=== PATIENT | female | born 1990 | race Caucasian/White ===

== ENCOUNTER 2020-05-05 02:01 | Inpatient (IN) | payer OTHER ==
[2020-05-05 02:25] VITALS: BMI 23.0
[2020-05-05] MEDS ORDERED: MAGNESIUM CITRATE 300 ML BOTTLE PO PRN (02:45)
[2020-05-05] MEDS ORDERED: NALOXONE HCL 0.4 MG/ML VIAL IM PRN (02:45)
[2020-05-05] MEDS ORDERED: ACETAMINOPHEN 325 MG TABLET (FP) PO PRN ×2 (02:45)
[2020-05-05] MEDS ORDERED: MAG HYDROX/AL HYDROX/SIMETH 30 ML UNIT-DOSE CUP PO PRN (02:45)
[2020-05-05] MEDS ORDERED: NALOXONE (NARCAN) HCL 4 MG/0.1 ML SPRAY NS PRN (02:45)
[2020-05-05] MEDS ORDERED: METHADONE HCL 10 MG TABLET (FOR DETOX USE ONLY) PO ONE (02:45)
[2020-05-05] MEDS ORDERED: DICYCLOMINE HCL 10 MG CAPSULE PO PRN (02:45)
[2020-05-05] MEDS ORDERED: MAGNESIUM HYDROX 2400MG/30ML ORAL SUSPENSION 30 ML CUP PO PRN (02:45)
[2020-05-05] MEDS ORDERED: guaiFENesin 200 MG/10 ML 10 ML UNIT-DOSE CUPS PO PRN (02:45)
[2020-05-05] MEDS ORDERED: NICOTINE POLACRILEX 2 MG GUM BUC PRN (02:45)
[2020-05-05] MEDS ORDERED: MENTHOL/PHENOL 1 EACH UD MM PRN (02:45)
[2020-05-05] MEDS ORDERED: IBUPROFEN 400 MG TABLET (FP) PO PRN (02:45)
[2020-05-05] MEDS ORDERED: BISMUTH SUBSALICYLATE 524 MG/30 ML UD PO PRN (02:45)
[2020-05-05] MEDS ORDERED: P-EPHED 60MG/TRIPROLIDI 2.5MG TABLET PO PRN (02:45)
[2020-05-05] MEDS ORDERED: METHADONE HCL 10 MG TABLET (FOR DETOX USE ONLY) ONE (03:48)
[2020-05-05] MEDS ORDERED: cloNIDine HCL 0.1 MG TABLET ONE (07:05)
[2020-05-05] MEDS ORDERED: ONDANSETRON *ODT* 4 MG TABLET ONE (07:06)
[2020-05-05] MEDS: ONDANSETRON *ODT* 4 MG TABLET SL PRN (07:08)
[2020-05-05] MEDS: cloNIDine HCL 0.1 MG TABLET PO PRN (07:08)
[2020-05-05] MEDS: LIDOCAINE 5% TOPICAL PATCH TP SCH (11:43)
[2020-05-05] MEDS: NICOTINE 21 MG/24 HOURS TOPICAL PATCH TD SCH (11:43)
[2020-05-05] MEDS: PRENATAL VITAMINS W/ FOLIC ACID TABLET (FP) PO SCH (11:45)
[2020-05-05] MEDS: THIAMINE HCL 100 MG TABLET (FP) PO SCH (22:57)
[2020-05-05] MEDS: MELATONIN 5 MG TABLETS PO SCH (22:57)
[2020-05-05] MEDS: LIDOCAINE PATCH REMOVAL MC SCH (23:07)
[2020-05-06] MEDS: diazePAM 5 MG TABLET PO PRN ×4 (00:55→22:49)
[2020-05-06] MEDS: METHOCARBAMOL 500 MG TABLET PO PRN ×3 (00:56→22:50)
[2020-05-06] MEDS: cloNIDine HCL 0.1 MG TABLET PO PRN ×2 (04:02→10:49)
[2020-05-06] MEDS: ONDANSETRON *ODT* 4 MG TABLET SL PRN (04:02)
[2020-05-06] MEDS ORDERED: METHADONE HCL 10 MG TABLET (FOR DETOX USE ONLY) ONE ×2 (08:58→10:47)
[2020-05-06] MEDS ORDERED: METHADONE HCL 5 MG TABLET (FOR DETOX USE ONLY) ONE ×2 (08:58→10:47)
[2020-05-06] MEDS ORDERED: METHADONE (DETOX) 20 MG, METHADONE (DETOX) 5 MG PO ONE (10:00)
[2020-05-06] MEDS ORDERED: METHADONE (DETOX) 10 MG, METHADONE (DETOX) 5 MG PO ONE (10:00)
[2020-05-06] MEDS: PRENATAL VITAMINS W/ FOLIC ACID TABLET (FP) PO SCH (10:42)
[2020-05-06] MEDS: NICOTINE 21 MG/24 HOURS TOPICAL PATCH TD SCH (10:42)
[2020-05-06 10:55] LABS: HEMATOCRIT 43.7 % (32.4-45.2); HEMOGLOBIN 14.6 GM/dL (10.7-15.3); MCH 29.2 pg (25.7-33.7); MCHC 33.3 g/dl (32.0-36.0); MEAN CELL VOLUME 87.6 fl (80-96); PLATELET COUNT 387 K/MM3 (134-434); RBC 4.99 M/mm3 (3.60-5.2); RDW 12.6 % (11.6-15.6); WHITE BLOOD COUNT 15.3 K/mm3 (4.0-10.0)
[2020-05-06 11:01] LABS: ALBUMIN 4.4 g/dl (3.4-5.0); BLOOD UREA NITROGEN 8.9 mg/dL (7-18); CALCIUM 9.3 mg/dL (8.5-10.1)
[2020-05-06 11:02] LABS: POTASSIUM 3.7 mmol/L (3.5-5.1)
[2020-05-06 11:04] LABS: CREATININE 0.8 mg/dL (0.55-1.3)
[2020-05-06 11:07] LABS: BILIRUBIN,TOTAL 1.6 mg/dL (0.2-1); TOT PROT 7.7 g/dl (6.4-8.2)
[2020-05-06] MEDS: LIDOCAINE 5% TOPICAL PATCH TP SCH (11:09)
[2020-05-06] MEDS: MELATONIN 5 MG TABLETS PO SCH (22:38)
[2020-05-06] MEDS: THIAMINE HCL 100 MG TABLET (FP) PO SCH (22:39)
[2020-05-06] MEDS: LIDOCAINE PATCH REMOVAL MC SCH (23:16)
[2020-05-07] MEDS: diazePAM 5 MG TABLET PO PRN ×4 (06:17→23:09)
[2020-05-07] MEDS: METHOCARBAMOL 500 MG TABLET PO PRN ×2 (06:17→12:18)
[2020-05-07] MEDS: NICOTINE 21 MG/24 HOURS TOPICAL PATCH TD SCH (09:25)
[2020-05-07] MEDS: PRENATAL VITAMINS W/ FOLIC ACID TABLET (FP) PO SCH (09:25)
[2020-05-07] MEDS: LIDOCAINE 5% TOPICAL PATCH TP SCH (09:25)
[2020-05-07] MEDS: ONDANSETRON *ODT* 4 MG TABLET SL PRN (09:37)
[2020-05-07] MEDS ORDERED: METHADONE HCL 10 MG TABLET (FOR DETOX USE ONLY) PO ONE ×2 (10:00)
[2020-05-07] MEDS ORDERED: MASKS NR ONE (16:32)
[2020-05-07] MEDS: THIAMINE HCL 100 MG TABLET (FP) PO SCH (23:09)
[2020-05-07] MEDS: MELATONIN 5 MG TABLETS PO SCH (23:10)
[2020-05-07] MEDS: LIDOCAINE PATCH REMOVAL MC SCH (23:10)
[2020-05-08] MEDS: METHOCARBAMOL 500 MG TABLET PO PRN ×2 (02:05→10:31)
[2020-05-08] MEDS ORDERED: METHADONE HCL 5 MG TABLET (FOR DETOX USE ONLY) PO ONE (06:00)
[2020-05-08] MEDS: ONDANSETRON *ODT* 4 MG TABLET SL PRN (07:26)
[2020-05-08 09:36] VITALS: BP 125/88; PULSE 107; TEMP 98.6
[2020-05-08] MEDS ORDERED: METHADONE (DETOX) 10 MG, METHADONE (DETOX) 5 MG PO ONE (10:00)
[2020-05-08] MEDS: PRENATAL VITAMINS W/ FOLIC ACID TABLET (FP) PO SCH (10:30)
[2020-05-08] MEDS: NICOTINE 21 MG/24 HOURS TOPICAL PATCH TD SCH (10:31)
[2020-05-08] MEDS: LIDOCAINE 5% TOPICAL PATCH TP SCH (10:31)
[2020-05-09] MEDS ORDERED: METHADONE HCL 10 MG TABLET (FOR DETOX USE ONLY) PO ONE (10:00)
[2020-05-10] MEDS ORDERED: METHADONE HCL 5 MG TABLET (FOR DETOX USE ONLY) PO ONE (06:00)
== END 2020-05-08 11:54 | disposition home or self-care (01) | DRG 896 ==
LOC: YASAS 02:01 → Y3N 09:53
PROVIDERS: ADMIT Allergy & Immunology; ATTEND Allergy & Immunology
PROC: HZ2ZZZZ Detoxification Services for Substance Abuse Treatment (ICD-10-PCS; principal; 2020-05-05)
DX: F11.23 Opioid dependence with withdrawal (principal); U07.1 COVID-19; F13.10 Sedative, hypnotic or anxiolytic abuse, uncomplicated; F17.210 Nicotine dependence, cigarettes, uncomplicated; F19.24 Other psychoactive substance dependence with psychoactive substance-induced mood disorder; Z91.81 History of falling; Z88.0 Allergy status to penicillin
CPT/HCPCS: 36415; 80053; 85027; 86780; 93005; 93010; C9803; J0735; Q0162; U0003

== ENCOUNTER 2021-03-17 01:02 | Inpatient (IN) | payer OTHER ==
[2021-03-17 01:56] VITALS: BMI 23.0
[2021-03-17] MEDS ORDERED: ACETAMINOPHEN 325 MG TABLET (FP) PO PRN ×2 (02:08)
[2021-03-17] MEDS ORDERED: NICOTINE POLACRILEX 2 MG GUM BUC PRN (02:08)
[2021-03-17] MEDS ORDERED: IBUPROFEN 400 MG TABLET (FP) PO PRN (02:08)
[2021-03-17] MEDS ORDERED: MENTHOL/PHENOL 1 EACH UD MM PRN (02:08)
[2021-03-17] MEDS ORDERED: MAGNESIUM CITRATE 300 ML BOTTLE PO PRN (02:08)
[2021-03-17] MEDS ORDERED: MAG HYDROX/AL HYDROX/SIMETH 30 ML UNIT-DOSE CUP PO PRN (02:08)
[2021-03-17] MEDS ORDERED: MAGNESIUM HYDROX 2400MG/30ML ORAL SUSPENSION 30 ML CUP PO PRN (02:08)
[2021-03-17] MEDS ORDERED: BISMUTH SUBSALICYLATE 524 MG/30 ML PO PRN (02:08)
[2021-03-17] MEDS ORDERED: cloNIDine HCL 0.1 MG TABLET PO PRN (02:29)
[2021-03-17] MEDS ORDERED: METHOCARBAMOL 500 MG TABLET ONE (03:19)
[2021-03-17] MEDS: METHOCARBAMOL 500 MG TABLET PO PRN ×3 (03:20→22:13)
[2021-03-17] MEDS ORDERED: methaDONE HCL 10 MG TABLET (FOR DETOX USE ONLY) PO ONE (10:44)
[2021-03-17] MEDS: NICOTINE 14 MG/24 HOURS TOPICAL PATCH TD SCH (10:50)
[2021-03-17] MEDS: PRENATAL VITAMINS W/ FOLIC ACID TABLET (FP) PO SCH (10:51)
[2021-03-17] MEDS: diazePAM 5 MG TABLET PO SCH ×3 (11:25→22:12)
[2021-03-17] MEDS: ONDANSETRON *ODT* 4 MG TABLET SL PRN (11:53)
[2021-03-17 12:34] LABS: HEMATOCRIT 45.4 % (32.4-45.2); HEMOGLOBIN 14.9 GM/dL (10.7-15.3); MCH 28.2 pg (25.7-33.7); MCHC 32.8 g/dl (32.0-36.0); MEAN PLT VOLUME 9.1 fl (7.5-11.1); PLATELET COUNT 282 10^3/uL (134-434); RBC 5.28 M/mm3 (3.60-5.2); RDW 12.6 % (11.6-15.6); WHITE BLOOD COUNT 6.1 K/mm3 (4.0-10.0)
[2021-03-17 12:44] LABS: ALBUMIN 4.1 g/dl (3.4-5.0)
[2021-03-17 12:46] LABS: CALCIUM 9.1 mg/dL (8.5-10.1)
[2021-03-17 12:47] LABS: BILIRUBIN,TOTAL 0.8 mg/dL (0.2-1); BLOOD UREA NITROGEN 10.8 mg/dL (7-18); TOT PROT 7.1 g/dl (6.4-8.2)
[2021-03-17 13:34] LABS: HIV INTERPRETATION NEGATIVE (NEGATIVE)
[2021-03-17] MEDS: diazePAM 5 MG TABLET PO PRN (14:55)
[2021-03-17] MEDS: THIAMINE HCL 100 MG TABLET (FP) PO SCH (22:12)
[2021-03-17] MEDS: MELATONIN 5 MG TABLETS PO SCH (22:12)
[2021-03-18] MEDS: ONDANSETRON *ODT* 4 MG TABLET SL PRN ×3 (00:25→22:07)
[2021-03-18] MEDS: diazePAM 5 MG TABLET PO PRN ×5 (00:25→20:16)
[2021-03-18] MEDS: diazePAM 5 MG TABLET PO SCH ×4 (05:26→22:04)
[2021-03-18] MEDS: METHOCARBAMOL 500 MG TABLET PO PRN ×2 (05:27→22:04)
[2021-03-18] MEDS ORDERED: methaDONE HCL 10 MG TABLET (FOR DETOX USE ONLY) ONE (08:54)
[2021-03-18] MEDS: PRENATAL VITAMINS W/ FOLIC ACID TABLET (FP) PO SCH (10:04)
[2021-03-18] MEDS: NICOTINE 14 MG/24 HOURS TOPICAL PATCH TD SCH (10:05)
[2021-03-18] MEDS: cloNIDine HCL 0.1 MG TABLET PO PRN (17:18)
[2021-03-18] MEDS: THIAMINE HCL 100 MG TABLET (FP) PO SCH (22:04)
[2021-03-18] MEDS: MELATONIN 5 MG TABLETS PO SCH (22:04)
[2021-03-19] MEDS: diazePAM 5 MG TABLET PO PRN ×4 (01:14→21:41)
[2021-03-19] MEDS: diazePAM 5 MG TABLET PO SCH ×3 (05:12→21:51)
[2021-03-19] MEDS: METHOCARBAMOL 500 MG TABLET PO PRN ×3 (05:12→21:40)
[2021-03-19] MEDS: ONDANSETRON *ODT* 4 MG TABLET SL PRN (09:20)
[2021-03-19] MEDS: NICOTINE 14 MG/24 HOURS TOPICAL PATCH TD SCH (09:22)
[2021-03-19] MEDS: PRENATAL VITAMINS W/ FOLIC ACID TABLET (FP) PO SCH (09:22)
[2021-03-19] MEDS ORDERED: methaDONE HCL 10 MG TABLET (FOR DETOX USE ONLY) PO ONE (10:00)
[2021-03-19] MEDS: NICOTINE 10 MG CARTRIDGE (INHALER) IH SCH (19:46)
[2021-03-19] MEDS: MELATONIN 5 MG TABLETS PO SCH (21:40)
[2021-03-19] MEDS: THIAMINE HCL 100 MG TABLET (FP) PO SCH (21:40)
[2021-03-19] MEDS: cloNIDine HCL 0.1 MG TABLET PO PRN (22:40)
[2021-03-20] MEDS: diazePAM 5 MG TABLET PO PRN ×2 (02:45→09:16)
[2021-03-20] MEDS: diazePAM 5 MG TABLET PO SCH ×2 (06:16→18:05)
[2021-03-20] MEDS: METHOCARBAMOL 500 MG TABLET PO PRN ×2 (06:17→22:08)
[2021-03-20] MEDS ORDERED: methaDONE HCL 10 MG TABLET (FOR DETOX USE ONLY) ONE ×2 (09:04→09:06)
[2021-03-20] MEDS: ONDANSETRON *ODT* 4 MG TABLET SL PRN (09:16)
[2021-03-20] MEDS: NICOTINE 14 MG/24 HOURS TOPICAL PATCH TD SCH (10:03)
[2021-03-20] MEDS: PRENATAL VITAMINS W/ FOLIC ACID TABLET (FP) PO SCH (10:43)
[2021-03-20] MEDS: NICOTINE 10 MG CARTRIDGE (INHALER) IH SCH (10:44)
[2021-03-20] MEDS: hydrOXYzine PAMOATE 25 MG CAPSULE (FP) PO PRN ×2 (14:26→22:09)
[2021-03-20] MEDS: THIAMINE HCL 100 MG TABLET (FP) PO SCH (22:08)
[2021-03-20] MEDS: MELATONIN 5 MG TABLETS PO SCH (22:08)
[2021-03-21] MEDS: ONDANSETRON *ODT* 4 MG TABLET SL PRN ×2 (01:21→12:10)
[2021-03-21] MEDS ORDERED: diazePAM 5 MG TABLET PO ONE ×2 (06:00→22:00)
[2021-03-21] MEDS ORDERED: methaDONE HCL 10 MG TABLET (FOR DETOX USE ONLY) PO ONE (10:00)
[2021-03-21] MEDS: PRENATAL VITAMINS W/ FOLIC ACID TABLET (FP) PO SCH (10:34)
[2021-03-21] MEDS: NICOTINE 14 MG/24 HOURS TOPICAL PATCH TD SCH (10:36)
[2021-03-21] MEDS: NICOTINE 10 MG CARTRIDGE (INHALER) IH SCH (10:36)
[2021-03-21] MEDS: METHOCARBAMOL 500 MG TABLET PO PRN ×2 (10:37→22:05)
[2021-03-21] MEDS: hydrOXYzine PAMOATE 25 MG CAPSULE (FP) PO PRN ×2 (12:10→17:45)
[2021-03-21] MEDS: MELATONIN 5 MG TABLETS PO SCH (22:05)
[2021-03-21] MEDS: THIAMINE HCL 100 MG TABLET (FP) PO SCH (22:06)
[2021-03-22] MEDS: hydrOXYzine PAMOATE 25 MG CAPSULE (FP) PO PRN (00:16)
[2021-03-22] MEDS: ONDANSETRON *ODT* 4 MG TABLET SL PRN (06:25)
[2021-03-22 07:29] VITALS: BP 117/92; PULSE 108; TEMP 97.3
== END 2021-03-22 07:00 | disposition home or self-care (01) | DRG 897 ==
LOC: YASAS 01:02 → Y3N 02:55
PROVIDERS: ADMIT Allergy & Immunology; ATTEND Allergy & Immunology
PROC: HZ2ZZZZ Detoxification Services for Substance Abuse Treatment (ICD-10-PCS; principal; 2021-03-17)
DX: F11.23 Opioid dependence with withdrawal (principal); F13.20 Sedative, hypnotic or anxiolytic dependence, uncomplicated; F19.24 Other psychoactive substance dependence with psychoactive substance-induced mood disorder; F32.9 Major depressive disorder, single episode, unspecified; F60.9 Personality disorder, unspecified; F41.1 Generalized anxiety disorder; F90.9 Attention-deficit hyperactivity disorder, unspecified type
CPT/HCPCS: 36415; 80053; 81025; 85027; 86780; 86803; 87389; 93005; 93010; C9803; J0735; Q0162; U0003; U0005